=== PATIENT | male | born 1990 | race African-American/Black ===

== ENCOUNTER 2024-07-31 16:42 | Emergency (ER) | payer OTHER ==
[~2024-07-31] VITALS: Ht 172.7 cm; Wt 99.0 kg
[2024-08-01] MEDS: IBUPROFEN 600MG TAB PO ONE (00:32)
[2024-08-01] MEDS ORDERED: BACITRACIN OINTMENT 30GM TUBE TOP ONE (01:05)
[2024-08-01 01:09] VITALS: BP 136/92; TEMP 97.2; O2SAT 97
== END 2024-08-01 01:16 | disposition home or self-care (01) ==
LOC: M ED 16:42
DX: S61.311A Laceration without foreign body of left index finger with damage to nail, initial encounter (principal); W26.0XXA Contact with knife, initial encounter; Y92.009 Unspecified place in unspecified non-institutional (private) residence as the place of occurrence of the external cause; Y93.G3 Activity, cooking and baking; Y99.9 Unspecified external cause status; Z88.6 Allergy status to analgesic agent